=== PATIENT | male | born 1980 | race African-American/Black ===

== ENCOUNTER → 2017-11-20 | Outpatient (CLI) | payer OTHER ==
--- NOTE | 2017-11-20 09:50 | RAD ---
Right hand ultrasound, 11/20/2017: HISTORY: And lump The right hand was scanned in the area of palpable concern dorsally. There is a subcutaneous hypoechoic nodule measuring 1.5 x 0.8 x 1.0 cm. Its margins are smooth. There is internal color flow compatible with a solid mass. No other abnormality is seen. IMPRESSION: Solid subcutaneous mass in the area of palpable concern. MR scanning may be useful for further evaluation, if clinically indicated. Electronically signed by: Max Carrillo MD (11/20/2017 9:47 AM) [facility]
== END | disposition home or self-care (01) ==
LOC: US 07:44
PROVIDERS: ATTEND Internal Medicine
DX: Z02.6 Encounter for examination for insurance purposes (principal); R22.31 Localized swelling, mass and lump, right upper limb; M21.941 Unspecified acquired deformity of hand, right hand; M79.641 Pain in right hand
CPT/HCPCS: 76881